=== PATIENT | female | born 1995 | race African-American/Black ===

== ENCOUNTER 2019-07-06 11:36 | Emergency (ER) | payer OTHER ==
[2019-07-06 13:14] LABS: APPEARANCE,URINE CLOUDY; BILIRUBIN,URINE NEGATIVE (NEGATIVE); COLOR,URINE YELLOW; GLUCOSE, URINE NEGATIVE (NEGATIVE); KETONES,URINE NEGATIVE (NEGATIVE); LEUKOCYTE ESTERASE,URINE LARGE (NEGATIVE); NITRITE,URINE NEGATIVE (NEGATIVE); PROTEIN,URINE NEGATIVE (NEGATIVE); URINE SPECIFIC GRAVITY 1.018; UROBILINOGEN,URINE NEGATIVE mg/dL (<2.0)
[2019-07-06 13:31] LABS: ADD MANUAL MICROSCOPIC YES; BACTERIA,URINE 2+ /HPF; WBC,URINE 50-100 /HPF
--- NOTE | 2019-07-06 14:04 | ER Document Report ---
ED General - General Chief Complaint: OB Problem (>20wk) Stated Complaint: OB PROBLEM Notes: Patient is a 23-year-old -[place] female who is at approximately 13 weeks gestation per last ultrasound who presents to the emergency department with a chief complaint of hesitancy and urgency of urination. She states she is unsure if this is related to or she has a UTI. She states she has been seen in the emergency department in May, having an ultrasound showing a subchorionic hemorrhage and followed up with her OB in [place] who repeated the ultrasound and she noted it to be normal at that time. Patient reports that she has had UTIs with this and prior pregnancies. Her last was an emergency . She denies any abdominal pain, cramping or vaginal bleeding at this time. No other pain, complaints or concerns. Past Medical History - Social History Smoking Status: Unknown if Ever Smoked Family History: None Review of Systems - Review of Systems Genitourinary: Urgency -: Yes All other systems reviewed and negative Physical Exam - Vital signs Vitals: Temp Pulse Resp BP Pulse Ox 98.8 F 99 16 111/59 L 99 07/06/19 11:42 07/06/19 11:42 07/06/19 11:42 07/06/19 11:42 07/06/19 11:42 - General General appearance: Appears well, Alert In distress: None - Respiratory Respiratory status: No respiratory distress Chest status: Nontender Breath sounds: Normal Chest palpation: Normal - Cardiovascular Rhythm: Regular Heart sounds: Normal auscultation - Abdominal Inspection: Normal Distension: No distension Bowel sounds: Normal Tenderness: Nontender Organomegaly: No organomegaly - Back Back: No: CVA tenderness - Neurological Neuro grossly intact: Yes Cognition: Normal Orientation: AAOx4 Tobin Coma Scale Eye Opening: Spontaneous [place] Coma Scale Verbal: Oriented Tobin Coma Scale Motor: Obeys Commands Tobin Coma Scale Total: 15 Speech: Normal - Psychological Associated symptoms: Normal affect, Normal mood - Skin Skin Temperature: Warm Skin Moisture: Dry Skin Color: Normal Course - Re-evaluation Re-evalutation: 07/06/19 14:02 Patient without any OB related complaints today. Has obvious UTI. Will be placed on Macrobid. She is in the process of establishing OB care here locally as she is just relocated here. I counseled her regarding the importance of outpatient follow-up and advised that she return here or any ER immediately with any new, persistent or worsening symptoms. She verbalized understood and agreed. - Vital Signs Vital signs: Temp Pulse Resp BP Pulse Ox 98.8 F 99 16 111/59 L 99 07/06/19 11:42 07/06/19 11:42 07/06/19 11:42 07/06/19 11:42 07/06/19 11:42 - Laboratory Laboratory results interpreted by me: 07/06/19 12:20 Ur Leukocyte Esterase LARGE H Discharge - Discharge Clinical Impression: UTI (urinary tract infection) during Qualifiers: Trimester: unspecified trimester Qualified Code(s): O23.40 - Unspecified infe ction of urinary tract in , unspecified trimester Condition: Stable Disposition: HOME, SELF-CARE Instructions: Urinary Tract Infection ([facility]) Additional Instructions: Follow-up with your local OB doctor and your regular doctor in 2 to 3 days for reevaluation. Return here or any ER immediately with any new, persistent or worsening symptoms. Prescriptions: Nitrofurantoin Monohyd/M-Cryst [Macrobid 100 mg Capsule] 100 mg PO BID #20 cap Referrals: MARGARETTE ALCAZAR MD [ACTIVE STAFF] - Follow up as needed
[2019-07-06 14:34] VITALS: BP 104/58
== END 2019-07-06 14:45 | disposition home or self-care (01) ==
LOC: ER 11:36
DX: O23.40 Unspecified infection of urinary tract in pregnancy, unspecified trimester (principal); Z3A.00 Weeks of gestation of pregnancy not specified
CPT/HCPCS: 81001; 99283

== ENCOUNTER 2019-08-16 17:11 | Emergency (ER) | payer OTHER ==
[2019-08-16] MEDS ORDERED: ACETAMINOPHEN 325 MG TABLET PO ONE (17:38)
[2019-08-16] MEDS ORDERED: NORMAL SALINE 1000 ML 1,000 ML IV ONE (18:55)
--- NOTE | 2019-08-16 19:34 | RADIOLOGY REPORT (SQ) ---
EXAM DESCRIPTION: CHEST SINGLE VIEW IMAGES COMPLETED DATE/TIME: 08/16/2019 7:24 pm REASON FOR STUDY: shortness of breath COMPARISON: None. EXAM PARAMETERS: NUMBER OF VIEWS: One view. TECHNIQUE: Single frontal radiographic view of the chest acquired. RADIATION DOSE: NA LIMITATIONS: None. FINDINGS: LUNGS AND PLEURA: No opacities, masses or pneumothorax. No pleural effusion. MEDIASTINUM AND HILAR STRUCTURES: No masses. Contour normal. HEART AND VASCULAR STRUCTURES: The heart size is at the upper limits of normal. Normal vasculature. BONES: No acute findings. HARDWARE: None in the chest. OTHER: Opaque device overlies T11 vertebral body may be external to the patient. IMPRESSION: 1. NO ACUTE RADIOGRAPHIC FINDING IN THE CHEST. TECHNICAL DOCUMENTATION: JOB ID: [id number] 2010 [employer]- All Rights Reserved Reading location - IP/workstation name: [email or web address]
[2019-08-16 19:58] LABS: ABSOLUTE LYMPHOCYTES (AUTO) 1.2 10^3/uL (0.5-4.7); ABSOLUTE MONOCYTES (AUTO) 1.9 10^3/uL (0.1-1.4); ABSOLUTE NEUT (AUTO) 12.3 10^3/uL (1.7-8.2); BASOPHILS % (AUTO) 0.3 % (0-2); EOSINOPHILS % (AUTO) 0.1 % (0-6); HEMATOCRIT 30.4 % (36.0-47.0); HEMOGLOBIN 10.3 g/dL (12.0-15.5); MEAN CORPUSCULAR VOLUME 85 fl (80-97); MONOCYTES % (AUTO) 12.4 % (3-13); PLATELET COUNT 259 10^3/uL (150-450); RED BLOOD COUNT 3.57 10^6/uL (3.72-5.28); RED CELL DISTRIBUTION WIDTH 13.8 % (11.5-14.0); SEGMENTED NEUTROPHILS % (AUTO) 79.2 % (42-78); TOTAL CELLS COUNTED % (AUTO) 100 %; WHITE BLOOD COUNT 15.5 10^3/uL (4.0-10.5)
[2019-08-16 20:00] LABS: BACTERIA (WET MOUNT) 4+ BACTERIA SEEN; EPITHELIALS (WET MOUNT) 3+ EPITHELIALS SEEN; T.VAGINALIS (WET MOUNT) NO TRICHOMONAS SEEN; WBCS (WET MOUNT) 3+ WBCS SEEN; YEAST (WET MOUNT) NO YEAST SEEN
[2019-08-16 20:05] LABS: APPEARANCE,URINE CLOUDY; BILIRUBIN,URINE NEGATIVE (NEGATIVE); COLOR,URINE YELLOW; GLUCOSE, URINE NEGATIVE (NEGATIVE); KETONES,URINE NEGATIVE (NEGATIVE); LEUKOCYTE ESTERASE,URINE LARGE (NEGATIVE); NITRITE,URINE NEGATIVE (NEGATIVE); PROTEIN,URINE 30 mg/dL (NEGATIVE); URINE SPECIFIC GRAVITY 1.015
[2019-08-16] MEDS ORDERED: CEFTRIAXONE INJ 1000 MG VIAL IM ONE (20:05)
[2019-08-16] MEDS ORDERED: LIDOCAINE 1% INJ-PF (10 MG/ML) 30 ML SDV INJ ONE (20:05)
--- NOTE | 2019-08-16 20:05 | ER Document Report ---
HPI - HPI Time Seen by Provider: 08/16/19 18:36 Pain Level: 4 Context: Patient is a 23-year-old female presents emergency department with a chief complaint of a cough, fever, dysuria, and possible outbreak of her herpes. Patient states that she is 19 weeks . Patient is sexually active. States that she might have some discharge. She has a history of urinary tract infections in the past. - CONSTITUTIONAL Constitutional: DENIES: Fever, Chills - NEURO Neurology: REPORTS: Headache - RESPIRATORY Respiratory: REPORTS: Trouble Breathing - REPRODUCTIVE Reproductive: REPORTS: : - MUSCULOSKELETAL Musculoskeletal: REPORTS: Back Pain - DERM Skin Color: Normal Skin Problems: None Past Medical History - General Information source: Patient - Social History Smoking Status: Never Smoker Chew tobacco use (# tins/day): No Frequency of alcohol use: None Drug Abuse: None Family History: None Patient has suicidal ideation: No Patient has homicidal ideation: No Psychiatric Medical History: Reports: Hx Bipolar Disorder, Hx Depression Past Surgical History: Reports: Hx Section - x1 Vertical Provider Document - CONSTITUTIONAL Agree With Documented VS: Yes Exam Limitations: No Limitations General Appearance: No Apparent Distress - INFECTION CONTROL TRAVEL OUTSIDE OF THE U.S. IN LAST 30 DAYS: No - HEENT HEENT: Atraumatic, Normocephalic, PERRLA - NECK Neck: Normal Inspection - RESPIRATORY Respiratory: Breath Sounds Normal, No Respiratory Distress - CARDIOVASCULAR Cardiovascular: Regular Rhythm, Tachycardia Pulses: Normal: Radial - GI/ABDOMEN Gastrointestinal: Abdomen Soft, Abdomen Non-Tender - visibly - REPRODUCTIVE Female Genitalia: Abnormal Inspection - clear/yellow discharge noted; folliculitis from shaving, CMT - small amount. negative: Adnexal Pain-Right, Adnexal Pain-Left - MUSCULOSKELETAL/EXTREMETIES Musculoskeletal/Extremeties: FROM - NEURO Level of Consciousness: Awake, Alert, Appropriate Motor/Sensory: No Motor Deficit, No Sensory Deficit - DERM Integumentary: Warm, Dry Course - Re-evaluation Re-evalutation: 08/16/19 19:41 Exam done with SAMUEL Song at bedside. Pelvic exam shows a closed cervical office. Patient did have a moderate amount of clear/yellow discharge noted. Patient does not appear to have vesicles. Patient does shave her pubic hair and she appears to have folliculitis. Wet mount was sent. heart tones are at 163-165. Hematology shows a leukocytosis of 15,500. Chemistries show that the patient is dehydrated. Her hCG is 13,688. Patient was seen little over a month ago with a diagnosis of a urinary tract infection. She was started on Macrobid. Patient states that she finished all her medications that she was given. She did not tell me this in her initial encounter. Patient now has protein in her urine and the large amount of leukocytes in her urine. She was given a liter of IV fluids. We will start her on Keflex. Patient received a dose of Rocephin here in the emergency department. Patient is unsure of whether or not she has been in contact with anybody tested positive for COVID-19. Patient has a cough, but her x-ray is normal. Patient will follow-up with her [employer] in regards to this visit. 08/16/19 20:34 Presentation is most consistent with bacterial vaginosis. Examination is without evidence of cervical motion tenderness, adnexal tenderness, no abdominal tenderness. Do not suspect tubo-ovarian abscess, gonorrhea, chlamydia, or pelvic inflammatory disease. Vitals within normal limits. Wet mount does demonstrate bacteria and white blood cells. Patient will be started on metronidazole. She has been discharged home with return precautions and follow- up recommendations. - Vital Signs Vital signs: Temp Pulse Resp BP Pulse Ox 100 F 124 H 20 101/52 L 99 08/16/19 18:54 08/16/19 18:46 08/16/19 18:46 08/16/19 18:46 08/16/19 18:46 - Laboratory Result Diagrams: 08/16/19 19:10 08/16/19 19:10 Discharge - Discharge Clinical Impression: Suspected COVID-19 virus infection Fever Qualifiers: Fever type: unspecified Qualified Code(s): R50.9 - Fever, unspecified Urinary tract infection Qualifiers: Urinary tract infection type: site unspecified Hematuria presence: without hematuria Qualified Code(s): N39.0 - Urinary tract infection, site not specified Qualifiers: Weeks of gestation: 19 weeks Qualified Code(s): Z3A.19 - 19 weeks gestation of Condition: Stable Disposition: HOME, SELF-CARE Instructions: Cephalexin ([facility]), Urinary Tract Infection ([facility]) Additional Instructions: Your urine shows findings consistent with a urinary tract infection. Please take all the antibiotics as directed even if your symptoms have improved. Please follow-up with your primary care physician as needed. Return to [facility] if you develop fever >101F, persistent vomiting, become lethargic, have severe pain in your sides, or any other symptoms that are concerning to you. You have an overgrowth of natural vaginal bacteria, called bacterial vaginosis. You are being treated with an antibiotic called metronidazole. Do not drink alcohol while taking this medication. Complete all of the antibiotic even if your symptoms have resolved. Return for abdominal pain, vomiting, fever of greater than 101F, or any other symptoms that are worrisome to you. Please follow-up with your [employer] or primary care doctor as needed. You are also being tested for COVID-19. Please stay quarantined until your results come back. If your results are positive, please stay at home for a total of 2 weeks. Follow-up with [facility] once your COVID results are back or you have stayed quarantined for 2 weeks. Prescriptions: Metronidazole [Metrogel 0.75% Vaginal Gel] 5 applic VG QHS 5 Days #1 tube Cephalexin [Keflex] 500 mg PO BID #14 capsule Referrals: [facility] [Provider Group] - Follow up in 3-5 days
[2019-08-16 20:19] LABS: ALBUMIN 3.3 g/dL (3.5-5.0); ALKALINE PHOSPHATASE 128 U/L (38-126); ANION GAP 9 (5-19); ASPARTATE AMINO TRANSFERASE 24 U/L (14-36); BILIRUBIN,TOTAL 0.5 mg/dL (0.2-1.3); BLOOD UREA NITROGEN 10 mg/dL (7-20); CALCIUM 8.6 mg/dL (8.4-10.2); CARBON DIOXIDE 20 mmol/L (22-30); CHLORIDE 101 mmol/L (98-107); GLUCOSE 102 mg/dL (75-110); POTASSIUM 3.3 mmol/L (3.6-5.0); TOTAL PROTEIN 6.7 g/dL (6.3-8.2)
[2019-08-16 20:56] VITALS: BP 125/83
[2019-08-16 21:32] LABS: CHLAM PCR NOT DETECTED (NOT DETECT)
== END 2019-08-16 20:56 | disposition home or self-care (01) ==
LOC: ER 17:11
DX: O23.42 Unspecified infection of urinary tract in pregnancy, second trimester (principal); O26.892 Other specified pregnancy related conditions, second trimester; R50.9 Fever, unspecified; R51 Headache; R05 Cough; R06.00 Dyspnea, unspecified; N89.8 Other specified noninflammatory disorders of vagina; Z20.828 Contact with and (suspected) exposure to other viral communicable diseases; Z3A.19 19 weeks gestation of pregnancy
CPT/HCPCS: 99283; 96372; 96360; 36415; 87210; 84702; 85025; 87635; 80053; 81001; 87491; 87591; 71045; J3490; J0696; J7030; 87086; 87088

== ENCOUNTER 2019-09-04 12:29 | Emergency (ER) | payer OTHER ==
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
[2019-09-04 13:21] LABS: ABSOLUTE EOSINOPHILS # (AUTO) 0.1 10^3/uL (0.0-0.6); ABSOLUTE LYMPHOCYTES (AUTO) 1.5 10^3/uL (0.5-4.7); ABSOLUTE MONOCYTES (AUTO) 0.5 10^3/uL (0.1-1.4); ABSOLUTE NEUT (AUTO) 2.7 10^3/uL (1.7-8.2); BASOPHILS % (AUTO) 0.5 % (0-2); EOSINOPHILS % (AUTO) 1.3 % (0-6); HEMATOCRIT 32.8 % (36.0-47.0); HEMOGLOBIN 11.3 g/dL (12.0-15.5); LYMPHOCYTES % (AUTO) 32.4 % (13-45); MEAN CORPUSCULAR HEMOGLOBIN 29.3 pg (27.0-33.4); MEAN CORPUSCULAR HGB CONC 34.3 g/dL (32.0-36.0); MEAN CORPUSCULAR VOLUME 86 fl (80-97); PLATELET COUNT 352 10^3/uL (150-450); RED BLOOD COUNT 3.84 10^6/uL (3.72-5.28); RED CELL DISTRIBUTION WIDTH 14.1 % (11.5-14.0); SEGMENTED NEUTROPHILS % (AUTO) 55.8 % (42-78); TOTAL CELLS COUNTED % (AUTO) 100 %; WHITE BLOOD COUNT 4.8 10^3/uL (4.0-10.5)
[2019-09-04 13:35] LABS: APPEARANCE,URINE SLIGHTLY-CLOUDY; BILIRUBIN,URINE NEGATIVE (NEGATIVE); COLOR,URINE YELLOW; GLUCOSE, URINE NEGATIVE (NEGATIVE); KETONES,URINE NEGATIVE (NEGATIVE); LEUKOCYTE ESTERASE,URINE NEGATIVE (NEGATIVE); NITRITE,URINE NEGATIVE (NEGATIVE); PROTEIN,URINE NEGATIVE (NEGATIVE); URINE SPECIFIC GRAVITY 1.005; UROBILINOGEN,URINE NEGATIVE mg/dL (<2.0)
[2019-09-04 13:42] LABS: ALBUMIN 3.8 g/dL (3.5-5.0); ALKALINE PHOSPHATASE 82 U/L (38-126); ANION GAP 8 (5-19); ASPARTATE AMINO TRANSFERASE 17 U/L (14-36); BILIRUBIN,TOTAL 0.2 mg/dL (0.2-1.3); BLOOD UREA NITROGEN 3 mg/dL (7-20); CALCIUM 9.6 mg/dL (8.4-10.2); CARBON DIOXIDE 22 mmol/L (22-30); CHLORIDE 107 mmol/L (98-107); GLUCOSE 92 mg/dL (75-110); POTASSIUM 3.6 mmol/L (3.6-5.0); TOTAL PROTEIN 7.5 g/dL (6.3-8.2)
[2019-09-04 13:46] LABS: ACETAMINOPHEN < 10 ug/mL (10-30); ALCOHOL < 10 mg/dL (NONE DETECTED); SALICYLATE < 1.0 mg/dL (2.0-20.0)
[2019-09-04 13:50] LABS: URINE AMPHETAMINES SCREEN NEGATIVE; URINE BARBITURATES SCREEN NEGATIVE; URINE BENZODIAZEPINES SCREEN NEGATIVE; URINE COCAINE SCREEN NEGATIVE; URINE METHADONE SCREEN NEGATIVE; URINE PHENCYCLIDINE SCREEN NEGATIVE
[2019-09-04 13:52] LABS: URINE MARIJUANA (THC) SCREEN UNCONFIRMED POSITIVE
--- NOTE | 2019-09-04 13:55 | ER Document Report ---
ED Psych Disorder / Suicide - General Chief Complaint: Psych Problem Stated Complaint: PSYCH EVAL Time Seen by Provider: 09/04/19 12:41 Primary Care Provider: SOCO LAU MD [Primary Care Provider] - Follow up as needed Mode of Arrival: Ambulatory Notes: 23-year-old female presents to the emergency department with a complaint of has been taken off of her usual medications for psychiatric problems. Apparently she is 20 weeks and after some discussion with her [id number] and the decision was made to discontinue the medication. She stopped the medicines approximately 3 weeks ago. Since that time has been having escalating symptoms of suicidal thoughts. She also is having thoughts of harming her and child. She has not made a plan, however, was directed to the emergency department by her prior psychiatrist who lives in [place]. TRAVEL OUTSIDE OF THE [place].S[place] IN LAST 30 DAYS: No - Related Data Allergies/Adverse Reactions: No Known Allergies Allergy (Verified 09/04/19 12:43) Home Medications: denies Past Medical History - General Information source: Patient - Social History Smoking Status: Former Smoker Chew tobacco use (# tins/day): No Frequency of alcohol use: None Drug Abuse: None Family History: None Patient has homicidal ideation: Yes Psychiatric Medical History: Reports: Hx Bipolar Disorder, Hx Depression Past Surgical History: Reports: Hx Section - x1 Review of Systems - Review of Systems Notes: Constitutional: Negative for fever. HENT: Negative for sore throat. Eyes: Negative for visual changes. Cardiovascular: Negative for chest pain. Respiratory: Negative for shortness of breath. Gastrointestinal: Negative for abdominal pain, vomiting or diarrhea. Genitourinary: Negative for dysuria. Musculoskeletal: Negative for back pain. Skin: Negative for rash. Neurological: Negative for headaches, weakness or numbness. Psychiatric: + Suicidal ideation 10 point ROS negative except as marked above and in HPI. Physical Exam - Vital signs Vitals: Temp Pulse Resp BP Pulse Ox 98.3 F 89 20 149/66 H 96 09/04/19 12:34 09/04/19 12:34 09/04/19 12:34 09/04/19 12:34 09/04/19 12:34 - Notes Notes: PHYSICAL EXAMINATION: Physical Exam: General: Well-nourished well-developed in no acute distress HEENT: NC/AT, pupils equal round and reactive to light, MM moist,nares clear, oropharynx clear, airway patent Neck: supple, no adenopathy, no masses. Good range of motion Lungs: clear, no wheezing, no rales no rhonchi CVS: Regular rate and rhythm no murmur gallop or rub Abdomen: Soft, active, nontender, no masses, no hepatosplenomegaly Ext: No edema, clubbing or cyanosis. Neuro: Alert and responsive, moving all 4 extremities on command, cranial nerves intact, no focal findings Skin: Intact no open lesions, no rash PSYCH: Normal mood, normal affect, + suicidal ideation, denies auditory or visual hallucinations, speech normal.. Course - Re-evaluation Re-evalutation: 09/04/19 18:50 Patient was seen for psychiatric consultation and IVC papers were completed. Patient is being transferred to [facility] for further medical management and treatment. - Vital Signs Vital signs: Temp Pulse Resp BP Pulse Ox 97.2 F 79 20 123/68 100 09/04/19 18:02 09/04/19 18:02 09/04/19 18:02 09/04/19 18:02 09/04/19 18:02 - Laboratory Result Diagrams: 09/04/19 13:04 09/04/19 13:04 Laboratory results interpreted by me: 09/04/19 09/04/19 09/04/19 13:04 13:04 13:04 Hgb 11.3 L Hct 32.8 L RDW 14.1 H BUN 3 L Serum HCG, Qual POSITIVE H Salicylates < 1.0 L Acetaminophen < 10 L 09/04/19 18:50 I have reviewed laboratory data and used this information for the treatment decisions regarding the patient. - EKG Interpretation by [facility] EKG shows normal: Sinus rhythm - Normal sinus rhythm rate of 78, no acute ST or T wave abnormalities. Discharge - Discharge Clinical Impression: Homicidal ideation, Suicidal ideation, Second trimester Depression Qualifiers: Depression Type: depression during Trimester: second trimester Qualified Code(s): O99.342 - Other mental disorders complicating , second trimester; F32.9 - Major depressive disorder, single episode, unspecified Condition: Good Disposition: PSYCH HOSP/UNIT Referrals: SOCO LAU MD [Primary Care Provider] - Follow up as needed
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
[2019-09-04 18:04] VITALS: BP 123/68
--- NOTE | 2019-09-04 22:29 | EKG REPORT ---
SEVERITY:- BORDERLINE ECG - SINUS RHYTHM BORDERLINE T WAVE ABNORMALITIES : Confirmed by: Enrique Diaz 04-Sep-2019 22:28:47
== END 2019-09-04 18:53 ==
LOC: ER 12:29
DX: O99.342 Other mental disorders complicating pregnancy, second trimester (principal); R45.851 Suicidal ideations; R45.850 Homicidal ideations; F32.9 Major depressive disorder, single episode, unspecified; Z3A.20 20 weeks gestation of pregnancy
CPT/HCPCS: 36415; 80053; 80307; 81001; 84703; 85025; 93005; 93010; 99285

== ENCOUNTER 2019-12-14 18:51 | Outpatient (CLI) | payer OTHER ==
[2019-12-14 20:38] LABS: APPEARANCE,URINE SLIGHTLY-CLOUDY; BILIRUBIN,URINE NEGATIVE (NEGATIVE); COLOR,URINE YELLOW; GLUCOSE, URINE NEGATIVE (NEGATIVE); KETONES,URINE NEGATIVE (NEGATIVE); LEUKOCYTE ESTERASE,URINE NEGATIVE (NEGATIVE); NITRITE,URINE NEGATIVE (NEGATIVE); PROTEIN,URINE NEGATIVE (NEGATIVE); URINE SPECIFIC GRAVITY 1.008; UROBILINOGEN,URINE NEGATIVE mg/dL (<2.0)
[2019-12-14 20:55] LABS: URINE AMPHETAMINES SCREEN NEGATIVE; URINE BARBITURATES SCREEN NEGATIVE; URINE BENZODIAZEPINES SCREEN NEGATIVE; URINE COCAINE SCREEN NEGATIVE; URINE MARIJUANA (THC) SCREEN NEGATIVE; URINE METHADONE SCREEN NEGATIVE; URINE PHENCYCLIDINE SCREEN NEGATIVE
== END 2019-12-14 21:07 | disposition home or self-care (01) ==
LOC: LC 18:51
PROVIDERS: ATTEND Obstetrics & Gynecology Gynecology
DX: O46.93 Antepartum hemorrhage, unspecified, third trimester (principal); Z3A.35 35 weeks gestation of pregnancy
CPT/HCPCS: 59025; 80307; 81001

== ENCOUNTER 2020-01-02 02:24 | Outpatient (CLI) | payer OTHER ==
--- NOTE | 2020-01-02 02:33 | Non Stress Test Report ---
Non Stress Test Datetime Report Generated by CPN: 01/02/2020 02:33 DEMOGRAPHIC EGA NST: 35.6 INDICATION Indication for Study (NST) Other: Gestational age greater than 32 weeks VITAL SIGNS Temperature - NST: 98.6 Pulse - NST: 88 RESP - NST: 17 NBPSYS NST: 118 NBPDIA NST: 68 URINE RESULTS Urine Protein, NST: Negative Urine Ketones - NST: Negative Urine Glucose - NST: Negative Urine Blood - NST: Negative MONITORING Monitor Explained: Monitor Explained; Test Explained; Patient Verbalized Understanding Time on Monitor: 12/14/2019 19:11 Time off Monitor: 12/14/2019 20:55 NST INTERVENTIONS NST Interventions: PO Hydration; Reposition Patient Physician Notified NST: Dr. Harvey BABY A: [id number] BABY A Movement : Present Contraction Frequency : x 1 FHR Baseline : 145 Accelerations : 15X15 Decelerations : None Variability : Moderate 6-25bpm NST Review: Meets Criteria for Reactive NST NST Review and Verified By : Khushbu Zhang RN NST Results: Reactive NST REPORT Report Trigger: Send Report
[2020-01-02 02:59] LABS: APPEARANCE,URINE CLEAR; BILIRUBIN,URINE NEGATIVE (NEGATIVE); COLOR,URINE YELLOW; GLUCOSE, URINE NEGATIVE (NEGATIVE); KETONES,URINE NEGATIVE (NEGATIVE); LEUKOCYTE ESTERASE,URINE SMALL (NEGATIVE); NITRITE,URINE NEGATIVE (NEGATIVE); PROTEIN,URINE NEGATIVE (NEGATIVE); URINE SPECIFIC GRAVITY 1.005; UROBILINOGEN,URINE NEGATIVE mg/dL (<2.0)
[2020-01-02 03:19] LABS: URINE AMPHETAMINES SCREEN NEGATIVE; URINE BARBITURATES SCREEN NEGATIVE; URINE BENZODIAZEPINES SCREEN NEGATIVE; URINE COCAINE SCREEN NEGATIVE; URINE MARIJUANA (THC) SCREEN NEGATIVE; URINE METHADONE SCREEN NEGATIVE; URINE PHENCYCLIDINE SCREEN NEGATIVE
--- NOTE | 2020-01-02 05:06 | RADIOLOGY REPORT (SQ) ---
Ultrasound biophysical profile without nonstress test on 01/02/2020 at 4:19 AM CLINICAL INDICATION: Nonreactive stress test COMPARISON: None FINDINGS: Multiple sonographic images are obtained throughout the pelvis by transabdominal approach, both transverse and sagittal images are obtained. A single living intrauterine fetus is noted in cephalic presentation. Positive cardiac activity is noted with a heart rate of 147 bpm. Placenta is posterior in location with no evidence of placenta previa or abruption. Adequate amniotic fluid is noted with amniotic fluid index of 7.1 cm. No gross abnormality is noted on limited imaging. Biophysical profile is scored at six out of eight with zero out of two for breathing. measurements for dates were not performed. IMPRESSION: 1. Single living intrauterine fetus in cephalic presentation. 2. Biophysical profile is six out of eight.
--- NOTE | 2020-01-02 06:03 | Non Stress Test Report ---
Non Stress Test Datetime Report Generated by CPN: 01/02/2020 06:03 DEMOGRAPHIC EGA NST: 38.4 INDICATION Indication for Study (NST) Other: lc MONITORING Monitor Explained: Monitor Explained; Test Explained; Patient Verbalized Understanding Time on Monitor: 01/02/2020 02:40 Time off Monitor: 01/02/2020 05:43 NST INTERVENTIONS NST Interventions: PO Hydration; Reposition Patient Physician Notified NST: Dr Harvey BABY A Movement : Present Contraction Frequency : 3-4.5 FHR Baseline : 145 Accelerations : 15X15 Decelerations : None Variability : Moderate 6-25bpm NST Review: Meets Criteria for Reactive NST NST Review and Verified By : Frederic Lujan RN NST Results: Reactive NST COMMENTS NST Comments: BPP done 6/8 NST REPORT Report Trigger: Send Report
== END 2020-01-02 06:09 | disposition home or self-care (01) ==
LOC: LC 02:24
PROVIDERS: ATTEND Obstetrics & Gynecology Gynecology
DX: O60.03 Preterm labor without delivery, third trimester (principal); Z3A.38 38 weeks gestation of pregnancy
CPT/HCPCS: 59025; 76819; 80307; 81005

== ENCOUNTER 2020-01-03 03:03 | Inpatient (IN) | payer OTHER ==
[2020-01-03 03:39] LABS: APPEARANCE,URINE CLEAR; BILIRUBIN,URINE NEGATIVE (NEGATIVE); COLOR,URINE YELLOW; GLUCOSE, URINE NEGATIVE (NEGATIVE); KETONES,URINE NEGATIVE (NEGATIVE); LEUKOCYTE ESTERASE,URINE TRACE (NEGATIVE); NITRITE,URINE NEGATIVE (NEGATIVE); PROTEIN,URINE NEGATIVE (NEGATIVE); URINE SPECIFIC GRAVITY 1.006; UROBILINOGEN,URINE NEGATIVE mg/dL (<2.0)
[2020-01-03 03:57] LABS: URINE AMPHETAMINES SCREEN NEGATIVE; URINE BARBITURATES SCREEN NEGATIVE; URINE BENZODIAZEPINES SCREEN NEGATIVE; URINE COCAINE SCREEN NEGATIVE; URINE MARIJUANA (THC) SCREEN NEGATIVE; URINE METHADONE SCREEN NEGATIVE; URINE PHENCYCLIDINE SCREEN NEGATIVE
--- NOTE | 2020-01-03 05:51 | RADIOLOGY REPORT (SQ) ---
EXAM DESCRIPTION: US BIOPHYSICAL PROFILE WITHOUT NON STRESS TEST COMPLETED DATE/TME: 01/03/2020 00:00 CLINICAL HISTORY: 24 years Female, bpp for nonreactive nst Comparison: One day prior. TECHNIQUE/LIMITATION: Targeted OB sonogram for requested parameters only. FINDINGS: Single IUP Cardiac activity: 153-bpm. Presentation: Vertex. breathin, abnormal posture and tone: Two, normal movement: Two, normal Amniotic fluid volume: Two, normal, AFV 2.4 x 2.3-cm Ultrasound biophysical profile total score: 6 of eight IMPRESSION: 1. Ultrasound biophysical profile total score: 6 of eight 2. Targeted OB sonogram for requested parameters
[2020-01-03] MEDS ORDERED: NORMAL SALINE 1000 ML 1,000 ML IV ONE (06:14)
[2020-01-03] MEDS ORDERED: NORMAL SALINE 1000 ML 1,000 ML IV PRN (06:14)
[2020-01-03] MEDS ORDERED: RINGERS SOLUTION,LACTATED 1,000 ML IV PRN ×3 (06:43→14:16)
--- NOTE | 2020-01-03 10:26 | Admission Physical ---
Datetime Report Generated by CPN: 01/03/2020 10:25 CURRENT ADMISSION Hx Assessment: The History has been Reviewed and is Current Chief Complaint: Other Indication for Induction: Not Applicable Admit Impression : Term, Intrauterine ; No Active Labor; Repeat Section Admit Plan: Admit to Unit; Initiate Section Protocol ALLERGIES Medication Allergies: No Medication Allergies: No Known Allergies (12/14/2019) Latex: No Latex Allergies Food Allergies: no Environmental Allergies: pollon/mold OBSTETRICAL HISTORY EDC: 01/12/2020 00:00 : 2 Para: 1 Term: 1 : 0 SAB: 0 IAB: 0 Ectopic: 0 Livin Cesareans: 1 VBACs: 0 Multiple Births: 0 Gestational Diabetes: No Rh Sensitization: No Incompetent Cervix: No MARISSA: No Infertility: No ART Treatment: No Uterine Anomaly: No IUGR: No Hx Previous C/S: Yes Macrosomia: No Hx Loss/Stillborn: No PIH: No Hx : No Placenta Previa/Abruption: No Depression/PP Depression: Yes PTL/PROM: No Post Hemorrhage: No Current Procedures: Ultrasound; NST; BPP Obstetrical History Comments: G1 - 06/18/18 IOL @ 39 wks "calcifications on placenta"; c/s for intolerance G2 - current; BPP 6/8 on 01/01/20 and 01/03/20 SEE RECORDS Alcohol: No Marijuana : No Cocaine: No Other Illicit Drugs: No Cigarettes: Never Smoker. [id number] Cigarette Frequency: < 5 per day MEDICAL HISTORY Diabetes: No Blood Transfusion: No Pulmonary Disease (Asthma, TB): Yes Breast Disease: No Hypertension: No Geophysical Computer Surgery: No Heart Disease: No Hosp/Surgery: No Autoimmune Disorder: No Anesthetic Complications: No Kidney Disease: No Abnormal Pap Smear: No Neuro/Epilepsy: No Psychiatric Disorders: Yes Other Medical Diseases: No Hepatitis/Liver Disease: No Significant Family History: No Varicosities/Phlebitis: No Trauma/Violence : No Thyroid Dysfunction: No Medical History Comments: schizoeffective disorder Bipolar ADD -IVC in August; childhood asthma, no attacks in adulthood INFECTIOUS HISTORY Gonorrhea: No Genital Herpes: Yes Chlamydia: No Tuberculosis: No Syphilis: No Hepatitis: No HIV/AIDS Exposure: No Rash or Viral Illness: No HPV: No PHYSICAL EXAM General: Normal Neurologic: Normal Heart: Normal Lungs: Normal Extremities: Normal VAGINAL EXAM Contraction Comments: irregular FETUS A EGA: 38.5 Monitoring: External US Variability: Minimal - Undetectable to <=5bpm Decelerations: None FHR Category: Category II FHR Comments: pt with periods of Cat I tracing but mostly minimal variability with no accels Presentation: Vertex Admit Comment: 24yo @ 38w5d into L_D earlier this am with contractions. Pt was sent home yesterday with BPP /8 and was supposed to come back this am for repeat BPP. On arrival pt continued to have a Cat II tracing, repeat BPP was 6/8 once again and pt is 1cm. Since arrival strip has had periods of Cat I vs Cat II tracing. Pt desired TOLAC with this after primary 05/2018 due to unreassuring status. Pt is B neg, RI, GBS positive. also complicated by obesity, schizoaffective disorder, ADD for which patient is on Zoloft, trazadone and haldol for. Pt also has hx of HSV and has not been taking valtrex. Dr. Soto is the OB stoner out today and after evaluating the strip the decision was made to admit patient and bypass IOL at this time, pt agreeable to repeat . INFORMED CONSENT Signature: with User ID: Hung : with User ID: Hung
[2020-01-03] MEDS ORDERED: CEFAZOLIN 2 GM/D5W RTU 2 GM/50 ML RTUPB IV ONE ×2 (10:45→11:44)
[2020-01-03 10:50] LABS: ABSOLUTE EOSINOPHILS # (AUTO) 0.1 10^3/uL (0.0-0.6); ABSOLUTE LYMPHOCYTES (AUTO) 1.8 10^3/uL (0.5-4.7); ABSOLUTE MONOCYTES (AUTO) 0.7 10^3/uL (0.1-1.4); BASOPHILS % (AUTO) 0.5 % (0-2); EOSINOPHILS % (AUTO) 1.1 % (0-6); HEMOGLOBIN 11.1 g/dL (12.0-15.5); LYMPHOCYTES % (AUTO) 27.1 % (13-45); MEAN CORPUSCULAR HEMOGLOBIN 27.8 pg (27.0-33.4); MEAN CORPUSCULAR HGB CONC 33.6 g/dL (32.0-36.0); MEAN CORPUSCULAR VOLUME 83 fl (80-97); PLATELET COUNT 248 10^3/uL (150-450); RED BLOOD COUNT 3.99 10^6/uL (3.72-5.28); RED CELL DISTRIBUTION WIDTH 15.8 % (11.5-14.0); SEGMENTED NEUTROPHILS % (AUTO) 60.3 % (42-78); TOTAL CELLS COUNTED % (AUTO) 100 %; WHITE BLOOD COUNT 6.6 10^3/uL (4.0-10.5)
[2020-01-03] MEDS ORDERED: CITRIC ACID/SODIUM CITRATE ORAL SOLN 15 ML UDCUP ONE (11:44)
[2020-01-03] MEDS ORDERED: ONDANSETRON HCL INJ/PF 4 MG/2 ML SDV ONE (13:00)
[2020-01-03] MEDS ORDERED: OXYTOCIN/0.9 % SODIUM CHLORIDE 30 UNIT/500 ML RTUINJ ONE (13:00)
[2020-01-03] MEDS ORDERED: FENTANYL CITRATE INJ/PF 100 MCG/2 ML AMPUL ONE (13:00)
[2020-01-03] MEDS ORDERED: OXYTOCIN 10 UNIT/ML VIAL ONE (13:00)
[2020-01-03] MEDS ORDERED: KETOROLAC TROMETHAMINE INJ/PF 30 MG/1 ML SDV ONE (13:00)
[2020-01-03] MEDS ORDERED: GLYCOPYRROLATE INJ 0.4 MG/2 ML VIAL ONE (13:24)
[2020-01-03] MEDS ORDERED: CALCIUM GLUCONATE 1000 MG/10 ML INJ IV ONE (13:45)
[2020-01-03] MEDS ORDERED: ACETAMINOPHEN 1,000 MG/100 ML RTUPB IV ONE (14:12)
[2020-01-03] MEDS ORDERED: BUPIVACAINE HCL 0.25 % INJ/PF (2.5 MG/1 ML) 30 ML VIAL ONE (14:12)
[2020-01-03] MEDS ORDERED: SIMETHICONE 80 MG TAB.CHEW PO PRN (14:16)
[2020-01-03] MEDS ORDERED: HYDROMORPHONE HCL INJ/PF 2 MG/ML AMPULE IV PRN (14:16)
[2020-01-03] MEDS ORDERED: PROMETHAZINE HCL INJ 25 MG/1 ML VIAL IV PRN (14:16)
[2020-01-03] MEDS ORDERED: OXYTOCIN/0.9 % SODIUM CHLORIDE 30 UNIT/500 ML RTUINJ IV PRN (14:16)
[2020-01-03] MEDS ORDERED: DIPH/PERTUSS(ACELL)/TETANUS VAC/PF 0.5 ML SYR (>=10YO) IM PRN (14:16)
[2020-01-03] MEDS ORDERED: ACETAMINOPHEN 1,000 MG/100 ML RTUPB IV PRN (14:16)
[2020-01-03] MEDS ORDERED: ACETAMINOPHEN 325 MG TABLET PO PRN (14:16)
[2020-01-03] MEDS ORDERED: MEASLES,MUMPS&RUBELLA VACC/PF 0.5 ML VIAL SUBCUT PRN (14:16)
--- NOTE | 2020-01-03 14:24 | Operative Report ---
Operative Report DATE OF SURGERY: 01/03/20 PREOPERATIVE DIAGNOSIS: Repeat for nonreassuring heart tracing and to reduce risk from uterine rupture POSTOPERATIVE DIAGNOSIS: Same plus thin lower uterine segment and meconium OPERATION: Repeat via low transverse uterine incision SURGEON: SOCO LAU ANESTHESIA: Spinal TISSUE REMOVED OR ALTERED: Placenta COMPLICATIONS: None ESTIMATED BLOOD LOSS: 400 cc INTRAOPERATIVE FINDINGS: Extremely thin lower uterine segment opened with a hemostat. Viable crying at delivery. PROCEDURE: Patient was taken to the OR and placed in supine position after her spinal anesthesia. She is prepared and draped in sterile fashion. Britton was placed for drainage of the bladder. Low transverse incision was made and carried down the level of the fascia. The fascial incision was made with knife and extended bilaterally with curved Adames scissors. The fascia was off the rectus muscles using sharp and blunt dissection. The rectus muscles are in the midline. The peritoneum was entered without incident. Bladder blade was placed in uterine segment was identified. A low transverse incision was made creating a bladder flap. Bladder blade was placed low transverse uterine incision was made with the hemostat and extended with fingertips. The baby was delivered with some fundal pressure. Mouth and nose were suctioned free. The cord is doubly clamped and cut. Baby is passed off to the hearing screener in attendance. The placenta was manually extracted with trailing membranes. The uterus was externalized wrapped in a moist lap sponge. Uterine contents wiped free. Uterus was closed with a running locking layer of 0 chromic suture using the second layer to imbricate the first completing a double layer closure of the uterus. The serosa was closed with a running 2-0 chromic stitch. The pelvis was irrigated and suctioned free of fluid the uterus was replaced in the abdomen. The abdominal wall peritoneum was closed with running 2-0 chromic stitch. Fascia was closed with a running 0 Vicryl in 2 segments. Beckie's layer was brought together with 0 plain gut stitch and the skin was closed with running subcuticular 4-0 undyed Vicryl stitch. The wound was dressed mother and baby did well.
--- NOTE | 2020-01-03 15:01 | Birth Certificate Data ---
Cert Data Datetime Report Generated by CPN: 01/03/2020 15:00 CERTIFICATE DATA 47a. Care: No (11/28/2019 20:49:Rimma Vallejo RN) 47b. Date of First Visit: 08/29/2019 00:00 (11/28/2019 20:49:Rimma Vallejo RN) 48a. Number of Prev Live Births: 1 (11/28/2019 20:49:Rimma Vallejo RN) 48b. Now Livin (11/28/2019 20:49:Valentine Blackburn RN) 48c. Live Births Now : 0 (11/28/2019 20:49:QS system process) 48d. Date of Last Live : 08/10/2018 00:00 (11/28/2019 20:49:Rimma Valleoj RN) 48e. Losses: 0 (11/28/2019 20:49:Rimma Vallejo RN) RISK FACTORS IN THIS 49a. Diabetes: No (11/28/2019 20:49:Rimma Vallejo RN) 49b. Hypertension: No (11/28/2019 20:49:Rimma Vallejo RN) 49c. Previous Births: 0 (11/28/2019 20:49:Rimma Vallejo RN) 49d. Stillborns: No (11/28/2019 20:49:Rimma Vallejo RN) 49d. IUGR: No (11/28/2019 20:49:Rimma Vallejo RN) 49e. Infertility Treatment: No (11/28/2019 20:49:Rimma Vallejo RN) 49f. Previous Cesareans: 1 (11/28/2019 20:49:Rimma Vallejo RN) Mother's Height 50b. Height Inches: 69 (01/03/2020 12:13:QS system process) Mother's Weight 51a. Pre- Weight (lbs): 211 (11/28/2019 20:49:Rimma Vallejo RN) 51b. Weight at Delivery (lbs): 224 (01/03/2020 12:13:QS system process) 52. Dt Last Normal Menses Began: 04/07/2019 00:00 (11/28/2019 20:49:Rimma Vallejo RN) Infections Present/Treated 53a. Gonorrhea: No (11/28/2019 20:49:Rimma Vallejo RN) Results this Hospital Visit : Negative (11/28/2019 20:49:Rogelio Prakash RN) 53b. Syphilis: No (11/28/2019 20:49:Rimma Vallejo RN) 53c. Chlamydia: No (11/28/2019 20:49:Rimma Vallejo RN) Results this Hospital Visit: Negative (11/28/2019 20:49:Rogelio Prakash RN) 53d. Hepatitis B: No (11/28/2019 20:49:Rimma Vallejo RN) Results this Hospital Visit: Negative (11/28/2019 20:49:Rogelio Prakash RN) 53e. Hepatitis C: Negative (11/28/2019 20:49:Rogelio Prakash RN) 53h. Mother Tested for HBsAG: Yes (11/28/2019 20:49:Valentine Blackburn RN) 53i. Date Tested: 08/29/2019 00:00 (11/28/2019 20:49:Valentine Blackburn RN) 53j. Test Result: Negative (11/28/2019 20:49:Rogelio Prakash RN) Obstetric Procedures 54a, b, c. Obstetric Procedures: Ultrasound; NST; BPP (11/28/2019 20:49:Rimma Vallejo RN) Cigarette Smoking 55a. 3 Months Before Preg - Ci (11/28/2019 20:49:Melanie Royal RN) 55b. 1st Trimester of Preg- Ci (11/28/2019 20:49:Melanie Royal RN) 55c. 2nd Trimester of Preg- Ci (11/28/2019 20:49:Melanie Royal RN) 55d. 3rd Trimester of Preg- Ci (11/28/2019 20:49:Melanie Royal RN) Onset of Labor 56a. PROM >12 Hrs: 0.00 (11/28/2019 20:49:QS system process) 57a. Induction of Labor: N/A (11/28/2019 20:49:Melanie Royal RN) 57c. Non-Vertex Presentation A: Vertex (11/28/2019 20:49:Melanie Royal RN) 57d. Steroids - Lung Mat: None (11/28/2019 20:49:Melanie Royal RN) 57d. Steroids - Lung Mat: Not Applicable (11/28/2019 20:49:Melanie Royal RN) 57g. Moderate/Heavy Meconium: Moderate Meconium (11/28/2019 20:49:Melanie Royal RN) 57h. Intolerance of Labor: Repeat c/s (11/28/2019 20:49:Melanie Royal RN) : N/A (11/28/2019 20:49:Melanie Royal RN) Method of Delivery 58a. Forceps - Unsuccessful A: N/A (11/28/2019 20:49:Melanie Royal RN) 58b. Vacuum - Unsuccessful A: N/A (11/28/2019 20:49:Melanie Royal RN) 58c. Presentation at 58c. Presentation at - A : Vertex (11/28/2019 20:49:Mleanie Royal RN) 58c. Presentation at - A : n/a (11/28/2019 20:49:Melanie oRyal RN) 58c. Presentation at - A : Cephalic (11/28/2019 20:49:Melanie Royal RN) Final Route and Method of Del 58d. Baby A Route/Delivery: (11/28/2019 20:49:Melanie Royal RN) 58e. Trial of Labor Attempted: No (11/28/2019 20:49:Melanie Royal RN) 58e. Trial of Labor Attempted A: N/A (11/28/2019 20:49:Melanie Royal RN) 58e. Trial of Labor Attempted B: N/A (11/28/2019 20:49:Melanie Royal RN) Maternal Morbidity 59b. 3rd or 4th Degree Lacs: None (11/28/2019 20:49:Melanie Royal RN) Birthweight Baby A: 3445 (11/28/2019 20:49:Melanie Royal RN) 60a. Pounds : 7 (11/28/2019 20:49:QS system process) 60b. Ounces: 10 (11/28/2019 20:49:QS system process) 61. GA at Delivery Baby A: 38.5 (11/28/2019 20:49:Melanie ZENAIDA Royal) : Early Term- 37- 38.6 Weeks (11/28/2019 20:49:QS system process) 62a. 5 Minute Baby A: 8 (11/28/2019 20:49:QS system process)
--- NOTE | 2020-01-03 15:01 | Delivery Summary ---
Del Sum A-C Datetime Report Generated by CPN: 01/03/2020 15:00 DELIVERY PERSONNEL DELIVERY PERSONNEL: [id number] Delivery Doctor:: Alejandro Soto MD WEAVING INSTRUCTOR:: Elvia Mckeon CRNA Chip Bin Conveyor Tender:: Melanie Royal RN Neonatal Nurse Practitioner:: AMELIA Brownlee Nursery Nurse:: Julieta Bal RN Airfreight Operations Agent/UNIVERSITY REGISTRAR: Penelope Mattson CST Airfreight Operations Agent/UNIVERSITY REGISTRAR: Elizabeth Mejia, LAUNDRY ROUTE DRIVER MATERNAL INFORMATION Delivery Anesthesia: Spinal Medications After Delivery: Pitocin 30 Units in 500ml NS/D5W Delivery QBL: 800 Maternal Complications: None LABOR SUMMARY EDC: 01/12/2020 00:00 No. Babies in Womb: 1 Attempted: No LABOR INFORMATION Reason for Induction: Not Applicable Oxytocin: N/A Group B Beta Strep: positive Name of Antibiotic Given: ancef Steroids Given: None Reason Steroids Not Administered: Not Applicable MEMBRANES Membranes Rupture Method: Artificial Rupture of Membranes: 01/03/2020 13:29 Length of Rupture (hr): 0.00 Amniotic Fluid Color: Moderate Meconium Amniotic Fluid Amount: Moderate Amniotic Fluid Odor: None STAGES OF LABOR Stage 3 hr: 0 Stage 3 min: 1 VAGINAL DELIVERY Episiotomy: None Laceration #1: None Laceration Extension #1: N/A Laceration Repair: Not Applicable CSECTION DELIVERY Primary Indication: Repeat c/s Secondary Indication: N/A CSection Urgency: Non-Scheduled CSection Incidence: Repeat Labor: No Labor Elective: Nonelective CSection Incision: Lower Uterine Transverse BABY A INFORMATION Delivery Date/Time: 01/03/2020 13:29 Method of Delivery: Nurse Controlled Delivery: No Born in Route : No : N/A Forceps: N/A Vacuum Extraction: N/A Shoulder Dystocia : No PRESENTATION/POSITION BABY A Presentation: Cephalic Cephalic Presentation: Vertex Vertex Position: n/a Breech Presentation: n/a PLACENTA INFORMATION BABY A Placenta Delivery Time : 01/03/2020 13:30 Placenta Method of Delivery: Manual Removal Placenta Status: Delivered SCORES BABY A Heart Rate 1 min: >100 bpm Resp Effort 1 min: Good Cry Reflex Irritability 1 min: Cough or Sneeze or Pulls Away Muscle Tone 1 min: Some Flexion of Extremities Color 1 min: Blue/Pale Resuscitation Effort 1 min: Tactile Stimulation SCORE 1 MIN: 7 Heart Rate 5 min: >100 bpm Resp Effort 5 min: Good Cry Reflex Irritability 5 min: Cough or Sneeze or Pulls Away Muscle Tone 5 min: Some Flexion of Extremities Color 5 min: Body [place], Extremities Blue Resuscitation Effort 5 min: Tactile Stimulation SCORE 5 MIN: 8 INFANT INFORMATION BABY A Gestational Age at Delivery: 38.5 Gestational Status: Early Term- 37- 38.6 Weeks Infant Outcome : Liveborn Condition : Stable Infant Sex: Male IDENTIFICATION BABY A Verification Date/Time: 01/03/2020 13:30 ID Band Number: [id number] Mother's Name Verified: Yes Infant RN Verifying Infant: rgrover,rn mmobley,rn WEIGHT/LENGTH BABY A Birthweight (gm): 3445 Weight (lb): 7 Weight (oz): 10 Infant Length (in): 19.50 Infant Length (cm): 49.53 CORD INFORMATION BABY A No. Cord Vessels: 3 Nuchal Cord : N/A Cord Blood Taken: Yes-For Eval (Mom's Blood Type - or O+) Suction: Mouth; Nose ASSESSMENT BABY A Skin to Skin: No Skin to Skin Time (min): 0 Infant Care By: RGrover,RN Transferred To: [facility] BABY B INFORMATION : N/A
[2020-01-03] MEDS: DOCUSATE SODIUM 100 MG CAPSULE PO SCH (17:28)
[2020-01-03] MEDS: OXYCODONE-ACETAMINOPHEN 5-325 MG TABLET PO PRN (17:28)
[2020-01-03] MEDS: TRAZODONE HCL 50 MG TABLET PO SCH (21:44)
[2020-01-03] MEDS: KETOROLAC TROMETHAMINE INJ/PF 30 MG/1 ML SDV IV SCH (21:44)
[2020-01-04] MEDS: OXYCODONE-ACETAMINOPHEN 5-325 MG TABLET PO PRN ×3 (01:39→18:53)
[2020-01-04] MEDS: KETOROLAC TROMETHAMINE INJ/PF 30 MG/1 ML SDV IV SCH (06:20)
[2020-01-04 07:31] LABS: MEAN CORPUSCULAR HEMOGLOBIN 28.1 pg (27.0-33.4); MEAN CORPUSCULAR HGB CONC 34.3 g/dL (32.0-36.0); MEAN CORPUSCULAR VOLUME 82 fl (80-97); PLATELET COUNT 180 10^3/uL (150-450); RED BLOOD COUNT 3.05 10^6/uL (3.72-5.28); RED CELL DISTRIBUTION WIDTH 15.5 % (11.5-14.0); WHITE BLOOD COUNT 9.3 10^3/uL (4.0-10.5)
[2020-01-04 07:36] LABS: HEMOGLOBIN 8.6 g/dL (12.0-15.5)
[2020-01-04] MEDS: PRENATAL VITAMIN W DHA CAPSULE PO SCH (09:36)
[2020-01-04] MEDS: HALOPERIDOL 5 MG TABLET PO SCH (09:36)
[2020-01-04] MEDS: SERTRALINE HCL 50 MG TABLET PO SCH (09:36)
[2020-01-04] MEDS: DOCUSATE SODIUM 100 MG CAPSULE PO SCH ×2 (09:36→18:01)
--- NOTE | 2020-01-04 10:46 | PDOC PROGRESS REPORT ---
Subjective-OB Progress Note for:: 01/04/20 Subjective: reports bleeding slowing, pain controlled with current meds. denies needs Physical Exam (OB) Vital Signs: Temp Pulse Resp BP Pulse Ox 98.4 F 69 16 129/82 H 100 01/04/20 08:16 01/04/20 07:23 01/04/20 07:23 01/04/20 07:23 01/04/20 07:23 Intake & Output 01/03/20 01/04/20 01/05/20 06:59 06:59 06:59 Intake Total 1300 Output Total 2100 Balance -800 Weight 101.9 kg - Dressing Removed: No Incision: Well Approximated Closure Type: opsite - Maternal Morbidity 59. Maternal Morbidity (serious complications experinced by the mother associated with labor and delivery: None of the above - Abdomen Description: Tender, Soft Hernia Present: No Fundal Description: Firm, Midline Fundal Height: u/u - u/2 - Extremities Lower extremities: Fatimah's sign - neg Calf: Normal, Nontender Objective-Diagnostic Laboratory: 01/04/20 06:39 01/03/20 01/03/20 01/04/20 10:25 10:25 06:39 WBC 6.6 9.3 RBC 3.99 3.05 L Hgb 11.1 L 8.6 L D Hct 33.0 L 25.0 L MCV 83 82 MCH 27.8 28.1 MCHC 33.6 34.3 RDW 15.8 H 15.5 H Plt Count 248 180 Seg Neutrophils % 60.3 Blood Type B NEGATIVE Antibody Screen NEGATIVE Assessment and Plan(PN) - Time Spent with Patient Time with patient: Less than 15 minutes - Disposition Anticipated Discharge Disposition: Home, Self Care Anticipated Discharge Timeframe: within 48 hours
[2020-01-04] MEDS: IBUPROFEN 800 MG TABLET PO SCH ×3 (14:13→23:28)
[2020-01-04] MEDS: TRAZODONE HCL 50 MG TABLET PO SCH (21:01)
[2020-01-05] MEDS: OXYCODONE-ACETAMINOPHEN 5-325 MG TABLET PO PRN (01:54)
[2020-01-05] MEDS: IBUPROFEN 800 MG TABLET PO SCH ×2 (05:44→11:30)
[2020-01-05] MEDS: DOCUSATE SODIUM 100 MG CAPSULE PO SCH (10:08)
[2020-01-05] MEDS: PRENATAL VITAMIN W DHA CAPSULE PO SCH (10:08)
[2020-01-05] MEDS: HALOPERIDOL 5 MG TABLET PO SCH (10:08)
[2020-01-05] MEDS: SERTRALINE HCL 50 MG TABLET PO SCH (10:08)
--- NOTE | 2020-01-05 11:14 | PDOC DISCHARGE SUMMARY ---
Impression - Admit/DC Date/PCP Admission Date/Primary Care Provider: 01/03/20 10:06 NARGIS MUNOZ MD Discharge Date: 01/05/20 - Discharge Diagnosis (1) Schizo affective schizophrenia Is this a current diagnosis for this admission?: Yes (2) Anemia due to acute blood loss Is this a current diagnosis for this admission?: Yes (3) Bipolar 1 disorder, mixed Is this a current diagnosis for this admission?: Yes (4) Non-reassuring electronic monitoring tracing Is this a current diagnosis for this admission?: Yes (5) S/P repeat low transverse Is this a current diagnosis for this admission?: Yes - Additional Information Resuscitation Status: Full Code Discharge Diet: Regular Discharge Activity: Activity As Tolerated, Balance Activity w/Rest, No Lifting Over 10 Pounds, No Lifting/Push/Pulling, Pelvic Rest, Slowly Increase Activity, No tub bath Referrals: NARGIS MUNOZ MD [Primary Care Provider] - Prescriptions: Oxycodone HCl/Acetaminophen [Percocet 5-325 mg Tablet] 1 tab PO Q4HP PRN #30 tablet PRN Reason: For Pain Scale 3-5 Ibuprofen [Motrin 800 mg Tablet] 800 mg PO Q8HP PRN #60 tablet PRN Reason: Home Medications: Vit,Calc76/Iron/Folic [Prenatabs Rx Tablet] 1 each PO DAILY 11/28/19 Sertraline HCl [Zoloft 50 mg Tablet] 1 tab PO DAILY 01/02/20 Trazodone HCl 1 tab PO DAILY 01/02/20 Haloperidol [Haldol 5 mg Tablet] 1 tab PO DAILY 01/03/20 Ibuprofen [Motrin 800 mg Tablet] 800 mg PO Q8HP PRN #60 tablet 01/05/20 Oxycodone HCl/Acetaminophen [Percocet 5-325 mg Tablet] 1 tab PO Q4HP PRN #30 tablet 01/05/20 HPI Reason(s) for Admission: Ceasarean Section-Repeat, Obstetric Complications Admission Note: Hx of HSV not on Valtrex NR FHT Procedures: NST, Management of Obstetric Complications Intrapartum Procedure(s): : Low Cervical, Transverse Hospital Course 59. Maternal Morbidity (serious complications experinced by the mother associated with labor and delivery: None of the above Results Laboratory Results: WBC 9.3 10^3/uL (4.0-10.5) 01/04/20 06:39 RBC 3.05 10^6/uL (3.72-5.28) L 01/04/20 06:39 Hgb 8.6 g/dL (12.0-15.5) L D 01/04/20 06:39 Hct 25.0 % (36.0-47.0) L 01/04/20 06:39 MCV 82 fl (80-97) 01/04/20 06:39 MCH 28.1 pg (27.0-33.4) 01/04/20 06:39 MCHC 34.3 g/dL (32.0-36.0) 01/04/20 06:39 RDW 15.5 % (11.5-14.0) H 01/04/20 06:39 Plt Count 180 10^3/uL (150-450) 01/04/20 06:39 Lymph % (Auto) 27.1 % (13-45) 01/03/20 10:25 [place] % (Auto) 11.0 % (3-13) 01/03/20 10:25 Eos % (Auto) 1.1 % (0-6) 01/03/20 10:25 Baso % (Auto) 0.5 % (0-2) 01/03/20 10:25 Absolute Neuts (auto) 4.0 10^3/uL (1.7-8.2) 01/03/20 10:25 Absolute Lymphs (auto) 1.8 10^3/uL (0.5-4.7) 01/03/20 10:25 Absolute Monos (auto) 0.7 10^3/uL (0.1-1.4) 01/03/20 10:25 Absolute Eos (auto) 0.1 10^3/uL (0.0-0.6) 01/03/20 10:25 Absolute Basos (auto) 0.0 10^3/uL (0.0-0.2) 01/03/20 10:25 Seg Neutrophils % 60.3 % (42-78) 01/03/20 10:25 Urine Color YELLOW 01/03/20 03:15 Urine Appearance CLEAR 01/03/20 03:15 Urine pH 7.0 (5.0-9.0) 01/03/20 03:15 Ur Specific [place] 1.006 01/03/20 03:15 Urine Protein NEGATIVE mg/dL (NEGATIVE) 01/03/20 03:15 Urine Glucose (UA) NEGATIVE mg/dL (NEGATIVE) 01/03/20 03:15 Urine Ketones NEGATIVE mg/dL (NEGATIVE) 01/03/20 03:15 Urine Blood SMALL (NEGATIVE) H 01/03/20 03:15 Urine Nitrite NEGATIVE (NEGATIVE) 01/03/20 03:15 Urine Bilirubin NEGATIVE (NEGATIVE) 01/03/20 03:15 Urine Urobilinogen NEGATIVE mg/dL (<2.0) 01/03/20 03:15 Ur Leukocyte Esterase TRACE (NEGATIVE) H 01/03/20 03:15 Urine Ascorbic Acid NEGATIVE (NEGATIVE) 01/03/20 03:15 Urine Opiates Screen NEGATIVE 01/03/20 03:15 Urine Methadone Screen NEGATIVE 01/03/20 03:15 Ur Barbiturates Screen NEGATIVE 01/03/20 03:15 Ur Phencyclidine Scrn NEGATIVE 01/03/20 03:15 Ur Amphetamines Screen NEGATIVE 01/03/20 03:15 U Benzodiazepines Scrn NEGATIVE 01/03/20 03:15 Urine Cocaine Screen NEGATIVE 01/03/20 03:15 U Marijuana (THC) Screen NEGATIVE 01/03/20 03:15 RPR NONREACTIVE (NONREACTIVE) 01/03/20 10:25 Blood Type B NEGATIVE 01/03/20 10:25 Antibody Screen NEGATIVE 01/03/20 10:25 Impressions: Stress Test 01/03/20 00:00 IMPRESSION: 1. Ultrasound biophysical profile total score: 6 of eight 2. Targeted OB sonogram for requested parameters Plan Plan of Treatment: f/u at [facility] next week Has home health visit arranged for next week per Dr. Acevedo Time Spent: Less than 30 Minutes
[2020-01-05 11:20] VITALS: BP 133/73
== END 2020-01-05 15:35 | disposition home or self-care (01) | DRG 787 ==
LOC: LC 03:03 → LR 10:06 → 2S 15:40
PROVIDERS: ADMIT Obstetrics & Gynecology; ATTEND Obstetrics & Gynecology
PROC: 10D00Z1 Extraction of Products of Conception, Low, Open Approach (ICD-10-PCS; principal; 2020-01-03)
DX: O99.824 Streptococcus B carrier state complicating childbirth (principal); O98.32 Other infections with a predominantly sexual mode of transmission complicating childbirth; D62 Acute posthemorrhagic anemia; O76 Abnormality in fetal heart rate and rhythm complicating labor and delivery; O99.344 Other mental disorders complicating childbirth; F25.0 Schizoaffective disorder, bipolar type; A60.09 Herpesviral infection of other urogenital tract; O90.81 Anemia of the puerperium; Z79.899 Other long term (current) drug therapy; Z91.048 Other nonmedicinal substance allergy status; Z3A.38 38 weeks gestation of pregnancy; Z37.0 Single live birth
CPT/HCPCS: 1961; 36415; 64486; 76819; 76942; 80307; 81005; 85025; 85027; 86592; 86695; 86696; 86850; 86900; 86901; 94760; 94799; 99140; J0131; J0610; J0690; J1170; J1885; J2405; J2590; J3010; J3490; J7120

== ENCOUNTER 2020-01-14 09:38 | Emergency (ER) | payer OTHER ==
[2020-01-14 09:45] VITALS: BP 136/89
== END 2020-01-14 10:02 | disposition left against medical advice (07) ==
LOC: ER 09:38
DX: Z53.21 Procedure and treatment not carried out due to patient leaving prior to being seen by health care provider (principal)